=== PATIENT | female | born 1995 | race Caucasian/White ===

== ENCOUNTER → 2024-05-08 | Outpatient (CLI) | payer OTHER ==
[2024-05-08 18:46] LABS: Source, Urine Clean Catch
[2024-05-08 19:31] LABS: BASOPHILS ABSOLUTE AUTO 0.02 K/mm3 (0.00-0.23); BASOPHILS PERCENT AUTO 0 % (0-2); EOSINOPHILS ABSOLUTE AUTO 0.18 K/mm3 (0.00-0.68); EOSINOPHILS PERCENT AUTO 3 % (0-6); Hematocrit 37.2 % (33.0-51.0); Hemoglobin 12.1 g/dL (11.5-16.0); IMMATURE GRAN ABSOLUTE AUTO 0.02 K/mm3 (0.00-0.10); IMMATURE GRAN PERCENT AUTO 0 % (0-1); LYMPHOCYTES ABSOLUTE AUTO 1.76 K/mm3 (0.84-5.20); LYMPHOCYTES PERCENT AUTO 27 % (21-46); MONOCYTES ABSOLUTE AUTO 0.35 K/mm3 (0.16-1.47); MONOCYTES PERCENT AUTO 5 % (4-13); Mean Corpuscular HGB 27.7 pg (26.0-34.0); Mean Corpuscular HGB Conc 32.5 g/dL (31.5-36.5); Mean Corpuscular Volume 85 fL (80-100); Mean Platelet Volume 8.9 fL (9.1-12.4); NEUTROPHILS ABSOLUTE AUTO 4.15 K/mm3 (1.96-9.15); NEUTROPHILS PERCENT AUTO 64 % (41-73); Platelet Count 286 K/mm3 (150-400); RDW Coefficient Variation 14.2 % (11.7-14.2); RDW Standard Deviation 43.7 fL (35.1-46.3); Red Blood Cell Count 4.37 M/mm3 (3.80-5.20); White Blood Cell Count 6.48 K/mm3 (4.00-11.30)
[2024-05-08 20:11] LABS: Bilirubin, Urine Neg (Neg); Blood, Urine Neg (Neg); Glucose Qualitative, Urine Neg (Neg); Ketones, Urine Neg (Neg); Leukocyte Esterase, Urine Neg (Neg); Nitrite, Urine Pos (Neg); Protein, Urine Neg (Neg); Specific Gravity, Urine 1.015 (1.003-1.022); Urobilinogen, Urine NORM (Normal)
[2024-05-08 20:53] LABS: Appearance, Urine Hazy (Clear); Color, Urine Pale Yellow (P-Yellow)
[2024-05-08 20:54] LABS: Bacteria Many /hpf; Red Blood Cells, Urine 0-2 /hpf (0-2); Squamous Epithelial Cells Rare /hpf (Few)
[2024-05-10 16:58] LABS: HEPATITIS C AB CIA INTERP Negative (Negative); HEPATITIS C ANTIBODY CIA INDEX 0.07 IV
[2024-05-10 17:52] LABS: HIV 1,2 COMBO ANTIGEN/ANTIBODY Negative (Negative)
[2024-05-10 18:41] LABS: HEPATITIS B SURFACE ANTIGEN Negative (Negative)
== END ==
LOC: LAB SHORT 18:43 → LAB 18:43
PROVIDERS: Registered Nurse Community Health
DX: Z34.91 Encounter for supervision of normal pregnancy, unspecified, first trimester (principal)
CPT/HCPCS: 81001; 84443; 86803; 87077; 87086; 87186; 87340; 87389

== ENCOUNTER → 2024-08-08 | Outpatient (CLI) | payer OTHER | LOC: LAB 16:35 → LAB SHORT 16:35 | DX: Z34.92 Encounter for supervision of normal pregnancy, unspecified, second trimester (principal) | CPT/HCPCS: 87077; 87086; 87186 ==

== ENCOUNTER → 2024-09-11 | Outpatient (CLI) | payer OTHER ==
[2024-09-11 18:45] LABS: Hematocrit 28.7 % (33.0-51.0); Hemoglobin 9.4 g/dL (11.5-16.0)
== END | disposition home or self-care (01) ==
LOC: LAB SHORT 18:26
PROVIDERS: Registered Nurse Community Health
DX: Z34.92 Encounter for supervision of normal pregnancy, unspecified, second trimester (principal)
CPT/HCPCS: 82950; 85014; 85018

== ENCOUNTER → 2024-09-18 | Outpatient (CLI) | payer OTHER ==
[2024-09-18 19:41] LABS: Percent Saturation 4.2 % (15.0-50.0)
== END ==
LOC: LAB 18:43 → LAB SHORT 18:43
PROVIDERS: Registered Nurse Community Health
DX: O99.013 Anemia complicating pregnancy, third trimester (principal)
CPT/HCPCS: 82728; 83540; 83550

== ENCOUNTER → 2024-10-01 | Outpatient (CLI) | payer OTHER | END | disposition home or self-care (01) | LOC: LAB 18:48 → LAB SHORT 18:48 | DX: N39.0 Urinary tract infection, site not specified (principal) | CPT/HCPCS: 87077; 87086; 87186 ==

== ENCOUNTER → 2024-11-01 | Outpatient (CLI) | payer OTHER ==
[2024-11-01 20:55] LABS: Chlamydia Trachomatis Urine NOT DETECTED (NOT DETECT); Neisseria Gonorrhoea Urine NOT DETECTED (NOT DETECT)
== END ==
LOC: LAB SHORT 17:15 → LAB 17:15
PROVIDERS: Registered Nurse Community Health
DX: Z34.03 Encounter for supervision of normal first pregnancy, third trimester (principal)
CPT/HCPCS: 87081; 87150; 87491; 87591

== ENCOUNTER 2024-11-23 16:08 | Inpatient (IN) | payer OTHER ==
[2024-11-23] VITALS (10 sets, daily range): BP systolic 104–119; BP diastolic 65–80
[~2024-11-23] VITALS: Ht 172.7 cm; Wt 68.2 kg
[2024-11-23] MEDS ORDERED: SERT50 PO (16:49)
[2024-11-23] MEDS ORDERED: Acetaminophen 500 MG Tab PO PRN (18:10)
[2024-11-23] MEDS ORDERED: Methylergonovine Maleate 0.2MG / ML 1ML Amp IM PRN (18:10)
[2024-11-23] MEDS ORDERED: Oxytocin 10 Unit / ML Vial IM PRN (18:10)
[2024-11-23] MEDS ORDERED: Ondansetron HCl 2 MG / ML 2ML Vial IV PRN ×2 (18:10→20:05)
[2024-11-23] MEDS ORDERED: Misoprostol 200 MCG Tab PR PRN (18:10)
[2024-11-23] MEDS ORDERED: OXYTOCIN/RINGER'S LACTATE 500 ML IV PRN (18:10)
[2024-11-23] MEDS ORDERED: Tranexamic Acid 100 ML IV PRN (18:10)
[2024-11-23] MEDS ORDERED: Carboprost Tromethamine 250 MCG/ML 1ML Amp IM PRN (18:10)
[2024-11-23] MEDS ORDERED: Misoprostol 200 MCG Tab BC PRN (18:10)
[2024-11-23] MEDS ORDERED: Calcium Carbonate 500 MG Tab Chew PO PRN (18:10)
[2024-11-23] MEDS ORDERED: Lactated Ringer's 1,000 ML IV PRN (18:10)
[2024-11-23 18:50] LABS: BASOPHILS ABSOLUTE AUTO 0.02 K/mm3 (0.00-0.23); BASOPHILS PERCENT AUTO 0 % (0-2); EOSINOPHILS ABSOLUTE AUTO 0.09 K/mm3 (0.00-0.68); EOSINOPHILS PERCENT AUTO 1 % (0-6); Hematocrit 38.2 % (33.0-51.0); Hemoglobin 12.5 g/dL (11.5-16.0); IMMATURE GRAN ABSOLUTE AUTO 0.03 K/mm3 (0.00-0.10); IMMATURE GRAN PERCENT AUTO 0 % (0-1); LYMPHOCYTES ABSOLUTE AUTO 1.94 K/mm3 (0.84-5.20); LYMPHOCYTES PERCENT AUTO 21 % (21-46); MONOCYTES ABSOLUTE AUTO 0.56 K/mm3 (0.16-1.47); MONOCYTES PERCENT AUTO 6 % (4-13); Mean Corpuscular HGB Conc 32.7 g/dL (31.5-36.5); Mean Corpuscular Volume 89 fL (80-100); Mean Platelet Volume 9.7 fL (9.1-12.4); NEUTROPHILS ABSOLUTE AUTO 6.55 K/mm3 (1.96-9.15); NEUTROPHILS PERCENT AUTO 71 % (41-73); Platelet Count 183 K/mm3 (150-400); RDW Coefficient Variation 21.7 % (11.7-14.2); RDW Standard Deviation 67.7 fL (35.1-46.3); Red Blood Cell Count 4.31 M/mm3 (3.80-5.20); White Blood Cell Count 9.19 K/mm3 (4.00-11.30)
[2024-11-23] MEDS ORDERED: Lactated Ringer's 1,000 ML IV SCH ×2 (19:20)
[2024-11-23] MEDS ORDERED: FentaNYL 2mcg/ml-Bup 0.1% Epd 250 ML EPI PRN (19:20)
[2024-11-23] MEDS ORDERED: ePHEDrine Sulfate 50 MG/ML 1ML Injection XX PRN (19:20)
[2024-11-23] MEDS ORDERED: FentaNYL Citrate 50 MCG/ML 2 ML Injection ONE (19:45)
[2024-11-23] MEDS ORDERED: DiphenhydrAMINE HCl 50 MG/ML 1ML Vial IV PRN (20:05)
[2024-11-23] MEDS ORDERED: ePHEDrine Sulfate 50 MG/ML 1ML Injection IV PRN (20:05)
[2024-11-23] MEDS ORDERED: Metoclopramide HCl 5MG / ML 2ML Vial IV PRN (20:05)
[2024-11-23] MEDS ORDERED: Phenyleph/Mineral Oil/Petrolat 1 APPLIC/57 GM Tube PR PRN (23:45)
[2024-11-23] MEDS ORDERED: Witch Hazel/Glycerin PADS TOP SCH (23:45)
[2024-11-24] VITALS (12 sets, daily range): BP systolic 97–114; BP diastolic 53–74
[2024-11-24] MEDS ORDERED: Methylergonovine Maleate 0.2MG / ML 1ML Amp IM PRN (01:20)
[2024-11-24] MEDS ORDERED: Misoprostol 200 MCG Tab PR PRN (01:20)
[2024-11-24] MEDS ORDERED: OxyCODONE 5 mg/Acetamin 325 mg TABLET PO PRN (01:20)
[2024-11-24] MEDS ORDERED: Lanolin Cream TOP PRN (01:20)
[2024-11-24] MEDS ORDERED: Ibuprofen 400 MG Tab PO PRN (01:25)
[2024-11-24] MEDS ORDERED: Rho(D) Immune Globulin 300 MCG / SYR IM ONE (01:25)
[2024-11-24] MEDS ORDERED: Benzocaine Topical Anesthetic Spray 60GM TOP PRN (01:25)
[2024-11-24] MEDS ORDERED: Ketorolac Tromethamine 30mg Vial IV PRN (01:25)
[2024-11-24] MEDS ORDERED: Acetaminophen/Codeine 300-30 mg PO PRN (01:25)
[2024-11-24] MEDS ORDERED: Measles/Mumps/Rubella Vaccine 0.5 ML Vial SC ONE (01:25)
[2024-11-24] MEDS ORDERED: Lactated Ringer's 1,000 ML IV SCH (01:25)
[2024-11-24] MEDS ORDERED: OXYTOCIN/RINGER'S LACTATE 500 ML IV SCH (01:30)
[2024-11-24] MEDS ORDERED: Witch Hazel/Glycerin PADS TOP PRN (01:30)
[2024-11-24] MEDS ORDERED: Acetaminophen 325 MG TABLET PO PRN (01:30)
[2024-11-24] MEDS ORDERED: Diphth,Pertuss(Acell),Tet Vac 0.5 ML VIAL IM ONE (01:30)
[2024-11-24] MEDS ORDERED: Docusate Sodium 100 MG Cap PO PRN (01:30)
[2024-11-24] MEDS ORDERED: Oxytocin 10 Unit / ML Vial IM ONE (01:30)
--- NOTE | 2024-11-24 06:12 | NUR ---
ASSUMED CARE OF PATIENT DURING VAGINAL DELIVERY RECOVERY AROUND 0100. PT REQUIRED 2ND DEGREE LACERATION REPAIR, DENIES ANY DISCOMFORT AT THIS TIME. PT IS WITH NURSE LATCH ASSIST, PT IS EAGER TO LEARN TECHNIQUES. PT HAS BEEN UP FROM THE TIME THIS NURSE TOOK OVER CARE. PLANNING TO REST AT THIS TIME. PT SHOWERED WITH AMBULATION ASSIST OF 2. PT MAY BE UP INDEPENDENTLY AT THIS TIME.
[2024-11-24 07:38] LABS: BASOPHILS ABSOLUTE AUTO 0.02 K/mm3 (0.00-0.23); BASOPHILS PERCENT AUTO 0 % (0-2); EOSINOPHILS ABSOLUTE AUTO 0.03 K/mm3 (0.00-0.68); EOSINOPHILS PERCENT AUTO 0 % (0-6); Hematocrit 35.9 % (33.0-51.0); Hemoglobin 11.5 g/dL (11.5-16.0); IMMATURE GRAN ABSOLUTE AUTO 0.05 K/mm3 (0.00-0.10); IMMATURE GRAN PERCENT AUTO 0 % (0-1); LYMPHOCYTES ABSOLUTE AUTO 1.56 K/mm3 (0.84-5.20); LYMPHOCYTES PERCENT AUTO 14 % (21-46); MONOCYTES ABSOLUTE AUTO 0.58 K/mm3 (0.16-1.47); MONOCYTES PERCENT AUTO 5 % (4-13); Mean Corpuscular HGB 28.7 pg (26.0-34.0); Mean Corpuscular Volume 90 fL (80-100); Mean Platelet Volume 9.4 fL (9.1-12.4); NEUTROPHILS ABSOLUTE AUTO 9.28 K/mm3 (1.96-9.15); NEUTROPHILS PERCENT AUTO 81 % (41-73); Platelet Count 151 K/mm3 (150-400); RDW Coefficient Variation 21.9 % (11.7-14.2); RDW Standard Deviation 69.6 fL (35.1-46.3); Red Blood Cell Count 4.01 M/mm3 (3.80-5.20); White Blood Cell Count 11.52 K/mm3 (4.00-11.30)
[2024-11-24] MEDS ORDERED: Prenatal Vit/FE Fumarate/FA 1 Tab PO SCH (09:00)
[2024-11-24] MEDS ORDERED: Rho(D) Immune Globulin 300 MCG / SYR IV ONE (10:00)
[2024-11-24] MEDS ORDERED: OxyCODONE HCL 5 MG TAB PO PRN (14:20)
[2024-11-24] MEDS ORDERED: Lidocaine 5% Ointment 35 gm TOP PRN (17:55)
[2024-11-24] MEDS ORDERED: Sennosides 8.6 MG Tab PO SCH (21:00)
[2024-11-24] MEDS ORDERED: Docusate Sodium 100 MG Cap PO SCH (21:00)
[2024-11-24] MEDS ORDERED: Lidocaine HCl 4% Cream 5 GM TOP ONE (21:45)
--- NOTE | 2024-11-25 06:17 | NUR ---
CARED FOR PATIENT FOR DURATION OF THIS SHIFT. PAIN HAS PROGRESSIVELY GOTTEN BETTER THIS SHIFT WITH PHARMOCOLOGICAL AND NONPHARM INTERVENTIONS. REPORTS BEING COMFORTABLE AT THIS TIME. IN ROOM UNDER BILILIGHTS. PT GOT LITTLE REST THIS SHIFT SHE IS ENAMORED BY .
[2024-11-25] MEDS ORDERED: Diphth,Pertuss(Acell),Tet Vac 0.5 ML VIAL IM PRN (08:20)
[2024-11-25 09:42] VITALS: BP 107/64
[2024-11-25 12:23] VITALS: BP 118/64
[2024-11-25 15:38] VITALS: BP 109/67
[2024-11-25 20:52] VITALS: BP 111/74
[2024-11-26 00:49] VITALS: BP 114/70
[2024-11-26 06:07] VITALS: BP 99/64
[2024-11-26 07:37] VITALS: BP 92/51
== END 2024-11-26 15:50 | disposition home or self-care (01) | DRG 806 ==
LOC: BC 16:08 → OBS 16:08 → BC 16:36
PROVIDERS: ADMIT Registered Nurse Community Health
PROC: 10E0XZZ Delivery of Products of Conception, External Approach (ICD-10-PCS; principal; 2024-11-24)
PROC: 0KQM0ZZ Repair Perineum Muscle, Open Approach (ICD-10-PCS; 2024-11-24)
PROC: 10907ZC Drainage of Amniotic Fluid, Therapeutic from Products of Conception, Via Natural or Artificial Opening (ICD-10-PCS; 2024-11-24)
PROC: 4A1HXCZ Monitoring of Products of Conception, Cardiac Rate, External Approach (ICD-10-PCS; 2024-11-24)
PROC: 00HU33Z Insertion of Infusion Device into Spinal Canal, Percutaneous Approach (ICD-10-PCS; 2024-11-24)
PROC: 3E0R3BZ Introduction of Anesthetic Agent into Spinal Canal, Percutaneous Approach (ICD-10-PCS; 2024-11-24)
PROC: 3E0334Z Introduction of Serum, Toxoid and Vaccine into Peripheral Vein, Percutaneous Approach (ICD-10-PCS; 2024-11-24)
DX: O99.344 Other mental disorders complicating childbirth (principal); O23.43 Unspecified infection of urinary tract in pregnancy, third trimester; Z37.0 Single live birth; O69.81X0 Labor and delivery complicated by cord around neck, without compression, not applicable or unspecified; F41.9 Anxiety disorder, unspecified; Z3A.39 39 weeks gestation of pregnancy; F32.A Depression, unspecified; O70.1 Second degree perineal laceration during delivery; Z67.40 Type O blood, Rh positive
CPT/HCPCS: 36415; 51702; 85025; 85460; 86850; 86900; 86901; A9270; J1885; J2405; J2590; J2791; J7120